=== PATIENT | female | born 1965 | race Caucasian/White ===

== ENCOUNTER → 2016-11-17 | Outpatient (CLI) | payer OTHER | LOC: FIMAGING 11:55 | PROVIDERS: ATTEND Obstetrics & Gynecology Gynecology | DX: Z12.31 Encounter for screening mammogram for malignant neoplasm of breast (principal) | CPT/HCPCS: G0202 ==

== ENCOUNTER → 2017-11-23 | Outpatient (CLI) | payer OTHER | LOC: FIMAGING 15:38 | PROVIDERS: ATTEND Obstetrics & Gynecology Gynecology | DX: Z12.31 Encounter for screening mammogram for malignant neoplasm of breast (principal) ==

== ENCOUNTER 2018-06-04 14:59 | Emergency (ER) | payer OTHER ==
--- NOTE | 2018-06-04 15:55 | EDPHY ---
H & P Stated Complaint: DIARRHEA 4-5 TIMES A DAY FOR 3 WEEKS,ABDOMINAL CRAMOING,NAUSEA Time Seen by Provider: 06/04/18 15:21 HPI/ROS: This patient complains of generalized abdominal cramping for 3 weeks duration. She explains that she took vacation to [place] and did not eat any unusual food while there. She had no seafood. She did have some fruit smoothies and upon arriving back in [place] on May 11 she developed diarrhea 4-5 loose stools a day that has persisted since that time associated with generalized abdominal cramping after she eats. Other than eating she notes no particular exacerbating factors. At times the cramping is quite uncomfortable including today with 8/10 generalized abdominal cramping after lunch the prompted her visit to the urgent care with the center to the emergency department for further evaluation. She states that without intervention the cramping has diminished to its current 4/10 intensity and reports that this severe cramping typically lasts for approximately 0.5 hr to time prior to diminishing to milder moderate cramping that is present for much of the day. She has had intermittent nausea as well but no vomiting. At the moment she has no nausea. ROS: Constitutional: No fevers. No significant fatigue. HEENT: Minimal sore throat this morning that she describes to a slightly dry throat, 2/10 intensity. She reports chronic coryza with no recent changes. Pulmonary: No shortness of breath or cough. Cardiovascular: No chest pain or heart palpitations. She does occasionally feel lightheaded. She describes this to a low baseline blood pressure. GI: No abdominal bloating. No bloody stools or dark tarry stools. Again no vomiting. No focal pain. She states psoas generalized in location when it comes : No dysuria frequency urgency. Endocrine: No complaints Integumentary: No pallor, skin rash or diaphoresis. 10 point review of symptoms is performed and otherwise negative with exception of pertinent positives and negatives listed in HPI and ROS Source: Patient Exam Limitations: No limitations - Personal History LMP (Females 10-55): 8-14 Days Ago Current Tetanus Diphtheria and Acellular Pertussis (TDAP): Yes Tetanus Vaccine Date: 2017 - Medical/Surgical History Hx Asthma: No Hx Chronic Respiratory Disease: No Hx Diabetes: No Hx Cardiac Disease: No Hx Renal Disease: No Hx Cirrhosis: No Hx Alcoholism: No Hx HIV/AIDS: No Hx Splenectomy or Spleen Trauma: No Other PMH: SHOULDER SURGERY 2013 - Family History Significant Family History: No pertinent family hx - Social History Smoking Status: Never smoked Alcohol Use: Occasionally (None for the past few weeks.) Drug Use: None Additional Social History: No suspect food ingestion or foreign travel recently. - Physical Exam Exam: General Appearance: Alert, no distress. Eyes: Pupils equal and round no pallor or injection. ENT, Mouth: Mucous membranes moist. Respiratory: There are no retractions, lungs are clear to auscultation. Cardiovascular: Regular rate and rhythm. Gastrointestinal: Hyperactive bowel sounds, soft, nontender, no distension. No organomegaly is appreciated. Back: No CVA tenderness Neurological: GCS 15 with no focal deficits. Skin: Warm and dry, no rashes. Musculoskeletal: Neck is supple nontender. Extremities are symmetrical, full range of motion. Psychiatric: Patient is oriented X 3, there is no agitation. DIFFERENTIAL DIAGNOSIS: After history and physical exam differential diagnosis was considered for food allergy/intolerance-gluten, lactose, infectious etiology -colitis, autoimmune colitis, IBS, colon cancer Constitutional: Initial Vital Signs Temperature (C) 36.6 C 06/04/18 15:17 Heart Rate 68 06/04/18 15:17 Respiratory Rate 14 06/04/18 15:17 Blood Pressure 143/87 H 06/04/18 15:17 O2 Sat (%) 99 06/04/18 15:17 O2 Delivery Mode Room Air Allergies/Adverse Reactions: codeine Allergy (Verified 06/04/18 15:16) hydrocodone Allergy (Verified 06/04/18 15:16) oxycodone Allergy (Verified 06/04/18 15:16) Sulfa (Sulfonamide Antibiotics) Allergy (Verified 06/04/18 15:15) Home Medications: Medication Instructions Recorded Hyoscyamine Sulfate [Levsin, 0.125 - 0.25 mg SL Q6 PRN #20 tab 06/04/18 Hyomax-Sl 0.125 mg (*)] Prilosec 06/04/18 Medical Decision Making ED Course/Re-evaluation: IV, labs, encouraged patient provide a stool sample if she is able Pt's cramping improved with levsin. She was unable to provide a stool sample. Labs are reviewed and POC CBC, comp. met. panel, urine dip show no sig. abnormalities. Discussion: pt. with diarrhea, hyperactive bowel sounds, cramping with benign workup. I counseled her regarding lab results, with plan to drop a stool sample at [facility] for PCR testing. Given possibility of food intolerance, I advised the patient to hold on any dairy products, try levsin for cramping and f/u with Gastroenterology. She understands the need to return emergency department should she develop any significant worsening of her symptoms despite the treatment plan. - Data Points Laboratory Results: 06/04/18 06/04/18 16:12 15:55 POC Sodium 143 mEq/L mEq/L (135-145) POC Potassium 3.6 mEq/L mEq/L (3.3-5.0) POC Chloride 103.0 mEq/L mEq/L (97-110) POC Total CO2 29 mEq/L mEq/L (22-31) POC BUN 11 mg/dL mg/dL (7-23) POC Creatinine 1.0 mg/dL mg/dL (0.6-1.0) POC Glucose 67 mg/dL L mg/dL (70-100) POC Calcium 9.6 mg/dL mg/dL (8.5-10.4) POC Total Bilirubin 0.6 mg/dL mg/dL (0.1-1.4) POC AST 25 IU/L IU/L (14-46) POC ALT 16 IU/L IU/L (9-52) POC Alk Phosphatase 56 IU/L IU/L (38-126) POC Total Protein 7.2 g/dL g/dL (6.3-8.2) POC Albumin 3.9 g/dL g/dL (3.5-5.0) Urine RBC 1-3 /hpf /hpf (0-3) Urine WBC 1-3 /hpf /hpf (0-3) Ur Epithelial Cells TRACE /lpf /lpf (NONE-1+) Urine Bacteria TRACE /hpf H /hpf (NONE SEEN) Urine Mucus TRACE /lpf /lpf (NONE-1+) Medications Given: Discontinued Medications Hyoscyamine Sulfate (Levsin, Hyomax-Sl) 0.125 mg PO EDNOW ONE Stop: 06/04/18 17:20 Last Admin: 06/04/18 17:33 Dose: 0.125 mg Sodium Chloride (Ns) 1,000 mls @ 0 mls/hr IV ONCE ONE; Wide Open PRN Reason: Protocol Stop: 06/04/18 16:10 Last Admin: 06/04/18 16:15 Dose: 1,000 mls Point of Care Test Results: CBC CBC Collection Date 06/04/18 CBC Collection Time 16:00 WBC 9.77 RBC 4.54 HGB 14.2 HCT 43.2 PLT 322 Neut # 6.03 Neut 61.8 LYMPH # 2.66 LYMPH 27.2 MCV 95.2 Chemistry 06/04/18 16:12 POC Sodium 143 mEq/L mEq/L (135-145) POC Potassium 3.6 mEq/L mEq/L (3.3-5.0) POC Chloride 103.0 mEq/L mEq/L (97-110) POC Total CO2 29 mEq/L mEq/L (22-31) POC BUN 11 mg/dL mg/dL (7-23) POC Creatinine 1.0 mg/dL mg/dL (0.6-1.0) POC Glucose 67 mg/dL L mg/dL (70-100) POC Calcium 9.6 mg/dL mg/dL (8.5-10.4) POC Total Bilirubin 0.6 mg/dL mg/dL (0.1-1.4) POC AST 25 IU/L IU/L (14-46) POC ALT 16 IU/L IU/L (9-52) POC Alk Phosphatase 56 IU/L IU/L (38-126) POC Total Protein 7.2 g/dL g/dL (6.3-8.2) POC Albumin 3.9 g/dL g/dL (3.5-5.0) Comprehensive Metabolic Panel CMP Collection Date 06/04/18 CMP Collection Time 16:00 Urine Dip Collection Date 06/04/18 Collection Time 15:55 Specific [place] (1.002-1.030) 1.020 PH (5.0-7.5) 5.5 Leukocytes (Negative) Trace Nitrites (Negative) Negative Protein (Negative) Negative Glucose (Negative) Negative Ketones (Negative) Negative Urobilnogen (0.2-1.0 EU) 0.2 Bilirubin (Negative) Negative Blood (Negative) Negative Departure - Departure Disposition: Home, Routine, Self-Care Clinical Impression: Generalized abdominal cramping Diarrhea Qualifiers: Diarrhea type: unspecified type Qualified Code(s): R19.7 - Diarrhea, unspecified Clinical Impression: (Ruled Out): Dizziness, Headache Condition: Good Instructions: Acute Diarrhea (ED), Dizziness (ED) Additional Instructions: Diagnosis: 1. Generalized crampy abdominal pain 2. Diarrhea Today your blood count, comprehensive metabolic panel, appear normal. Your automated urine study showed a some white blood cells but it is unclear how many until our qc lab technician at the hospital looks the urine under the microscope. We will call you ending are consistent with a urinary tract infection. Your stool studies pending Plan: Avoid all lactose containing foods-avoid any dairy products to see if this may be a lactose intolerance causing her diarrhea and cramping. Levsin if needed for abdominal cramping Drink plenty fluids Bring a stool sample to the [facility] to be evaluated in the lab there. The orders in the computer. You can drop this off at the emergency department check in area. Follow up with hydrometallurgical engineer for further evaluation-make an outpatient appointment for this. Return emergency department for any significant worsening despite the treatment plan. Referrals: KORTNEY WARE [Primary Care Provider] - As per Instructions Dom Gray MD [Medical Doctor] - As per Instructions Brad Strickland MD [Medical Doctor] - As per Instructions Prescriptions: Hyoscyamine Sulfate [Levsin, Hyomax-Sl 0.125 mg (*)] 0.125 - 0.25 mg SL Q6 PRN # 20 tab PRN Reason: abdominal cramping
[2018-06-04] MEDS ORDERED: NS 1,000 ML IV ONE (16:09)
[2018-06-04] MEDS ORDERED: HYOSCYAMINE SULFATE 0.125 MG TAB PO ONE (17:19)
[2018-06-04 18:27] VITALS: BP 136/82
== END 2018-06-04 17:52 | disposition home or self-care (01) ==
LOC: CED 14:59
DX: R19.7 Diarrhea, unspecified (principal); E86.9 Volume depletion, unspecified
CPT/HCPCS: 80053-ER; 85025-QW-ER; 96360-ER; 99284-ER